=== PATIENT | male | born 1995 | race Native Hawaiian/Other Pacific Islander ===

== ENCOUNTER 2016-09-04 09:18 | Outpatient (CLI) | payer OTHER | END 2016-09-04 19:07 | disposition home or self-care (01) | LOC: RAD 09:18 | DX: R07.89 Other chest pain (principal) ==

== ENCOUNTER 2018-12-25 12:51 | Outpatient (CLI) | payer OTHER | END 2018-12-25 20:31 | disposition home or self-care (01) | LOC: NM 12:51 | DX: R10.11 Right upper quadrant pain (principal) | CPT/HCPCS: A9537 ==

== ENCOUNTER 2019-03-30 11:28 | Outpatient (CLI) | payer OTHER | END 2019-03-30 19:26 | disposition home or self-care (01) | LOC: RAD 11:28 | DX: M54.12 Radiculopathy, cervical region (principal) ==